=== PATIENT | male | born 1985 | race American Indian/Alaskan Native ===

== ENCOUNTER 2019-10-10 19:11 | Emergency (ER) | payer SELFPAY ==
[2019-10-10] MEDS ORDERED: ASPIRIN 325 MG TAB PO ONE (20:16)
--- NOTE | 2019-10-10 20:47 | XRay Report ---
CHEST 2 VIEWS INDICATION / CLINICAL INFORMATION: Chest Pain. COMPARISON: None available. FINDINGS: SUPPORT DEVICES: None. HEART / MEDIASTINUM: No significant abnormality. LUNGS / PLEURA: No significant pulmonary or pleural abnormality. No pneumothorax. ADDITIONAL FINDINGS: No significant additional findings. IMPRESSION: No acute finding. Signer Name: Octavio Alamo MD Signed: 10/10/2019 8:43 PM Workstation Name: [id number]
[2019-10-10 23:09] LABS: Basophils # (Auto) 0.1 K/mm3 (0.0-0.1); Basophils % (Auto) 0.8 % (0.0-1.8); Eosinophils # (Auto) 0.1 K/mm3 (0.0-0.4); Eosinophils % (Auto) 1.2 % (0.0-4.3); Hematocrit 40.2 % (35.5-45.6); Hemoglobin 13.7 gm/dl (11.8-15.2); Lymphocytes # (Auto) 3.6 K/mm3 (1.2-5.4); Lymphocytes % (Auto) 48.9 % (13.4-35.0); Mean Corpuscular HGB Conc 34 % (32-34); Mean Corpuscular Volume 95 fl (84-94); Monocytes # (Auto) 0.8 K/mm3 (0.0-0.8); Monocytes % (Auto) 10.9 % (0.0-7.3); Platelet Count 206 K/mm3 (140-440); Red Blood Count 4.22 M/mm3 (3.65-5.03); Red Cell Distribution Width 14.3 % (13.2-15.2)
[2019-10-10 23:33] LABS: BUN/Creatinine Ratio 11; Blood Urea Nitrogen 10 mg/dL (9-20); Calcium 9.5 mg/dL (8.4-10.2); Hemolysis Index 16
--- NOTE | 2019-10-11 02:14 | Emergency Department Report ---
ED Palpitations HPI - General Chief Complaint: Chest Pain Stated Complaint: CHEST PAIN Time Seen by Provider: 10/11/19 02:07 Source: patient Mode of arrival: Ambulatory Limitations: No Limitations - History of Present Illness Initial Comments: CC: "I have anxiety. I have been stressed out." Mr. Haley is a 33-year-old male with history of hypertension who presents with stress and anxiety for the last several months. He denies current chest pain or arm pain. He's had palpitations. He's been stressed about financial issues and relationship with family members. He denies depression. Denies suicidal homicidal radiation. He has not taken blood pressure medication although he has had a history of hypertension. He uses naturoathic supplements and lifestyle changes to attempt to control his blood pressure. He is currently pain-free. He smokes marijuana daily. Complaint: palpitations -: month(s) (several months) Context: occured during rest Arrythmia History: other (none) Associated Symptoms: anxiety - Related Data Previous Rx's Medication Instructions Recorded Last Taken Type amLODIPine 10 mg PO DAILY 30 Days #30 tab 10/11/19 Unknown Rx hydroCHLOROthiazide [HCTZ] 25 mg PO QDAY 30 Days #30 tablet 10/11/19 Unknown Rx Allergies Allergy/AdvReac Type Severity Reaction Status Date / Time Penicillins Allergy Itching Verified 10/10/19 19:30 ED Review of Systems ROS: Stated complaint: CHEST PAIN Other details as noted in HPI Comment: All other systems reviewed and negative Constitutional: denies: fever, malaise Respiratory: denies: shortness of breath Cardiovascular: palpitations. denies: chest pain Gastrointestinal: denies: abdominal pain, nausea, vomiting Psychiatric: anxiety. denies: depression, homicidal thoughts, suicidal thoughts ED Past Medical Hx - Past Medical History Previous Medical History?: Yes Hx Hypertension: Yes (Has been told before he had. No meds.) - Surgical History Past Surgical History?: Yes Additional Surgical History: Left Knee Surgery - Social History Smoking Status: Never Smoker Substance Use Type: Marijuana - Medications Home Medications: Home Medications Medication Instructions Recorded Confirmed Last Taken Type amLODIPine 10 mg PO DAILY 30 Days #30 tab 10/11/19 Unknown Rx hydroCHLOROthiazide [HCTZ] 25 mg PO QDAY 30 Days #30 tablet 10/11/19 Unknown Rx ED Physical Exam - General Limitations: No Limitations General appearance: alert, in no apparent distress - Head Head exam: Present: atraumatic, normocephalic - Eye Eye exam: Present: normal appearance - ENT ENT exam: Present: mucous membranes moist - Neck Neck exam: Present: normal inspection, full ROM - Respiratory Respiratory exam: Present: normal lung sounds bilaterally. Absent: respiratory distress, wheezes, rales, rhonchi - Cardiovascular Cardiovascular Exam: Present: regular rate, normal rhythm, normal heart sounds. Absent: systolic murmur, diastolic murmur, rubs, gallop - GI/Abdominal GI/Abdominal exam: Present: soft, normal bowel sounds. Absent: distended, tenderness, guarding, rebound - Rectal Rectal exam: Present: deferred - Extremities Exam Extremities exam: Present: normal inspection - Neurological Exam Neurological exam: Present: alert, oriented X3 - Psychiatric Psychiatric exam: Present: normal affect, normal mood. Absent: anxious, flat affect, manic, homicidal ideation, suicidal ideation - Skin Skin exam: Present: warm, dry, intact, normal color. Absent: rash ED Course Vital Signs 10/10/19 19:24 Temperature 98.6 F Pulse Rate 73 Respiratory 18 Rate Blood Pressure 191/104 O2 Sat by Pulse 98 Oximetry ED Medical Decision Making - Lab Data Result diagrams: 10/10/19 22:25 10/10/19 22:25 Abnormal Lab Results 10/10/19 10/10/19 10/11/19 22:25 22:25 00:47 WBC 7.3 RBC 4.22 Hgb 13.7 Hct 40.2 MCV 95 H MCH 33 H MCHC 34 RDW 14.3 Plt Count 206 Lymph % (Auto) 48.9 H Calloway % (Auto) 10.9 H Eos % (Auto) 1.2 Baso % (Auto) 0.8 Lymph # 3.6 Calloway # 0.8 Eos # 0.1 Baso # 0.1 Seg Neutrophils % 38.2 L Seg Neutrophils # 2.8 Sodium 141 Potassium 3.9 Chloride 103.5 Carbon Dioxide 23 Anion Gap 18 BUN 10 Creatinine 0.9 Estimated GFR > 60 BUN/Creatinine Ratio 11 Glucose 94 Calcium 9.5 Troponin T < 0.010 < 0.010 - EKG Data EKG shows normal: sinus rhythm, axis, intervals, QRS complexes, ST-T waves Rate: normal - EKG Data Interpretation: normal EKG - Radiology Data Radiology results: report reviewed Chest radiograph no acute findings according to radiologist's impression - Medical Decision Making 1. "Stress and anxiety" without suicidal homicidal ideation. Denies depression. Attempts to medicate self medicating with marijuana. I recommended cognitive behavioral therapy considering hismultiple social stressors. Given referral to local mental health center 2. Asymptomatic hypertensive urgency: He appears to be in denial of his diagnosis of hypertension. I strongly recommended taking the medication prescribed. I prescribed 90 day prescriptions of amlodipine hydrochlorothiazide Critical care attestation.: If time is entered above; I have spent that time in minutes in the direct care of this critically ill patient, excluding procedure time. ED Disposition Clinical Impression: Anxiety, Asymptomatic hypertensive urgency Disposition: DC-01 TO HOME OR SELFCARE Is pt being admited?: No Does the pt Need Aspirin: No Condition: Stable Instructions: Hypertension (ED), Anxiety (ED) Prescriptions: amLODIPine 10 mg PO DAILY 30 Days #30 tab hydroCHLOROthiazide [HCTZ] 25 mg PO QDAY 30 Days #30 tablet Referrals: TESFAYE GAFFNEY MD [Staff Physician] - 3-5 Days Forms: Work/School Release Form(ED)
[2019-10-11 04:30] VITALS: BP 175/93
== END 2019-10-11 03:27 | disposition home or self-care (01) ==
LOC: ED 19:11
DX: I16.0 Hypertensive urgency (principal); F41.9 Anxiety disorder, unspecified; F12.10 Cannabis abuse, uncomplicated; Z88.0 Allergy status to penicillin; Z98.890 Other specified postprocedural states
CPT/HCPCS: 36415; 71046; 80048; 84484; 85025; 93005; 93010

== ENCOUNTER 2019-10-23 09:41 | Emergency (ER) | payer SELFPAY ==
--- NOTE | 2019-10-23 12:24 | Emergency Department Report ---
Chief Complaint: Earache Stated Complaint: LT EAR RINGING/NUMBNESS LT HAND Time Seen by Provider: 10/23/19 12:00 - HPI History of Present Illness: 33-year-old -Prydeinig male presents emerged department complaining of having 1 day history of pain into the left ear with no pain no discharge reports no foreign travel no high or low altitude no trauma. No fever, chills, sweats no headache no dizziness. He reports no new no new no new medications - ROS Review of Systems: All systems are negative except for stated in HPI - Exam Vital Signs: Vital signs stable General: Patient is well nourished, well developed, awake and alert, resting comfortably in no acute distress Head: Normocephalic and atraumatic Eyes: Normal inspection, extraocular muscles intact, no conjunctival pallor Ear, nose, throat: Normal external exam Neck: Normal range of motion Respiratory: Patient is in no respiratory distress, lungs CTAB Cardiovascular: Patient is not tachycardic, RRR without murmur appreciated GI: Abd SNT with no guarding or rebound; +BS normoactive x 4, no tympanny to percussion Back: Normal inspection of the back with good strength and range of motion throughout all ext Extremities: pulses intact with good cap refills, no LE pitting edema or calf tenderness Neuro: The patient is alert and oriented to person, place, and time, appropriately conversive, with 5/5 bilat UE/LE strength, no gross motor or sensory defects noted. Coordination appears to be adequate. Skin: Warm, dry, and intact MSE screening note: Focused history and physical exam performed. Due to findings the following was ordered: ED Disposition for MSE Clinical Impression: Tinnitus of left ear Disposition: DC-01 TO HOME OR SELFCARE Is pt being admited?: No Does the pt Need Aspirin: No Condition: Stable Instructions: Meniere Disease (ED) Additional Instructions: Please be advised your ears had some debris left inside the canal still patent please irrigate your ear with Debrox as we discussed Referrals: [facility] [Provider Group] - 3-5 Days
== END 2019-10-23 12:36 | disposition left against medical advice (07) ==
LOC: ED 09:41
DX: H93.12 Tinnitus, left ear (principal)
CPT/HCPCS: 99282